=== PATIENT | male | born 1960 | race Hispanic/Latino ===

== ENCOUNTER 2020-01-30 19:18 | Emergency (ER) | payer BC ==
--- NOTE | 2020-01-30 20:55 | RAD REPORT ---
EXAM DESCRIPTION: RAD - Chest Single View - 01/30/2020 8:39 pm CLINICAL HISTORY: COUGH Chest pain. COMPARISON: No comparisons FINDINGS: Portable technique limits examination quality. The lungs are grossly clear. The heart is normal in size. No displaced fractures. IMPRESSION: No acute intrathoracic process suspected.
[2020-01-30] MEDS ORDERED: NA CHLORIDE 0.9% 500 ML ONE (21:06)
[2020-01-30 21:24] LABS: Absolute Lymphocytes (CBC) 1.7 K/uL (0.7-4.9); Basophils % 0.4 % (0-1.3); Hematocrit 41.5 % (39.6-49.0); Lymphocytes % 24.3 % (15.3-44.8); MPV 7.5 fL (7.6-11.3); RBC Red Blood Cell Count 4.42 M/uL (4.33-5.43)
[2020-01-30] MEDS ORDERED: ASPIRIN 81 MG CHEWABLE TABLET ONE (21:33)
[2020-01-30 21:54] LABS: ALT/SGPT 57 U/L (12-78); AST/SGOT 40 U/L (15-37); Albumin 3.1 g/dL (3.4-5.0); Alkaline Phosphatase 74 U/L (45-117); BUN Blood Urea Nitrogen 15 mg/dL (7-18); Bicarbonate 28 mmol/L (21-32); Bilirubin Direct 0.1 mg/dL (0-0.2); Bilirubin Total 0.3 mg/dL (0.2-1.0); Glucose Level 114 mg/dL (74-106); Magnesium 1.9 mg/dL (1.8-2.4); NT PRO-BNP 36 pg/mL (<125); Potassium 3.9 mmol/L (3.5-5.1); Protein, Total 7.2 g/dL (6.4-8.2); Sodium Level 136 mmol/L (136-145); Troponin (Emerg Dept Use Only) < 0.02 ng/mL (0.0-0.045)
--- NOTE | 2020-01-30 22:24 | EDPHYS ---
Physician Documentation [facility] Name: Rubén Kelly Age: 59 yrs Sex: Male : 1960 Arrival Date: 01/30/2020 Time: 19:37 Bed 23 Private MD: ED Physician Eliezer Tillman HPI: 01/29 20:11 This 59 yrs old Male presents to ER via Unassigned with complaints of john Breathing Difficulty, Chest Pain. 20:11 The patient has shortness of breath at rest, with light activity. Onset: The john symptoms/episode began/occurred 1 day(s) ago. Duration: The symptoms are continuous, and are unchanged since they started. The patient's shortness of breath is aggravated by nothing, is alleviated by nothing. Associated signs and symptoms: Pertinent positives: non-productive cough, mild valdez. Severity of symptoms: At their worst the symptoms were mild in the emergency department the symptoms are unchanged. The patient has not experienced similar symptoms in the past. Historical: - Allergies: 19:58 No Known Allergies; bb - Home Meds: 19:58 tramadol 50 mg Oral tab three times a day [Active]; gabapentin 600 mg oral tab 1 tab bb four times a day [Active]; lisinopril-hydrochlorothiazide 20-12.5 mg oral tab 1 tab once daily [Active]; - PMHx: 19:58 Hypertension; chronic back pain; bb - Immunization history:: Adult Immunizations up to date. - Social history:: Smoking status: Patient denies any tobacco usage or history of. ROS: 20:12 Constitutional: Negative for fever, chills, and weight loss, Eyes: Negative for injury, john pain, redness, and discharge, ENT: Negative for injury, pain, and discharge, Neck: Negative for injury, pain, and swelling, Cardiovascular: Negative for chest pain, palpitations, and edema, Abdomen/GI: Negative for abdominal pain, nausea, vomiting, diarrhea, and constipation, Back: Negative for injury and pain, : Negative for injury, bleeding, discharge, and swelling, MS/Extremity: Negative for injury and deformity, Skin: Negative for injury, rash, and discoloration, Neuro: Negative for headache, weakness, numbness, tingling, and seizure, Psych: Negative for depression, anxiety, suicide ideation, homicidal ideation, and hallucinations, Allergy/Immunology: Negative for hives, rash, and allergies, Endocrine: Negative for neck swelling, polydipsia, polyuria, polyphagia, and marked weight changes. 20:12 Respiratory: Positive for cough, shortness of breath, on exertion. 20:12 Neuro: Positive for headache. Exam: 20:12 Constitutional: This is a well developed, well nourished patient who is awake, alert, john and in no acute distress. Head/Face: Normocephalic, atraumatic. Eyes: Pupils equal round and reactive to light, extra-ocular motions intact. Lids and lashes normal. Conjunctiva and sclera are non-icteric and not injected. Cornea within normal limits. Periorbital areas with no swelling, redness, or edema. ENT: Nares patent. No nasal discharge, no septal abnormalities noted. Tympanic membranes are normal and external auditory canals are clear. Oropharynx with no redness, swelling, or masses, exudates, or evidence of obstruction, uvula midline. Mucous membranes moist. Neck: Trachea midline, no thyromegaly or masses palpated, and no cervical lymphadenopathy. Supple, full range of motion without nuchal rigidity, or vertebral point tenderness. No Meningismus. Chest/axilla: Normal chest wall appearance and motion. Nontender with no deformity. No lesions are appreciated. Cardiovascular: Regular rate and rhythm with a normal S1 and S2. No gallops, murmurs, or rubs. Normal PMI, no JVD. No pulse deficits. Respiratory: Lungs have equal breath sounds bilaterally, clear to auscultation and percussion. No rales, rhonchi or wheezes noted. No increased work of breathing, no retractions or nasal flaring. Abdomen/GI: Soft, non-tender, with normal bowel sounds. No distension or tympany. No guarding or rebound. No evidence of tenderness throughout. Back: No spinal tenderness. No costovertebral tenderness. Full range of motion. Male : Normal genitalia with no discharge or lesions. Skin: Warm, dry with normal turgor. Normal color with no rashes, no lesions, and no evidence of cellulitis. MS/ Extremity: Pulses equal, no cyanosis. Neurovascular intact. Full, normal range of motion. Neuro: Awake and alert, GCS 15, oriented to person, place, time, and situation. Cranial nerves II-XII grossly intact. Motor strength 5/5 in all extremities. Sensory grossly intact. Cerebellar exam normal. Normal gait. Psych: Awake, alert, with orientation to person, place and time. Behavior, mood, and affect are within normal limits. 20:12 Musculoskeletal/extremity: DVT Exam: No signs of deep vein thrombosis. no pain, no swelling, no tenderness, negative Homans' sign noted on exam, no appreciated bluish discoloration, no erythema, no increased warmth. 20:16 Neck: ROM/movement: is normal, no acute changes, Meningeal signs: are not present, john Kernig's sign is negative, Brudzinski's sign is negative. 21:24 ECG was reviewed by the Attending Physician. [facility] Vital Signs: 20:12 BP 121 / 67; Pulse 103; Resp 18; Temp 100.(O); Pulse Ox 95% ; Weight 136.08 kg; Height ls4 5 ft. 4 in. (162.56 cm); Pain 3/10; 21:17 BP 110 / 64; Pulse 93; Resp 16; Pulse Ox 97% on R/A; Pain 3/10; ls4 08 00:10 BP 114 / 62; Pulse 88; Resp 16; Temp 100.0(O); Pulse Ox 97% on R/A; Pain 3/10; ls4 00:30 BP 116 / 64; Pulse 78; Resp 16; Pulse Ox 98% on R/A; Pain 0/10; ls4 01/29 20:12 Body Mass Index 51.49 (136.08 kg, 162.56 cm) ls4 Anne Coma Score: 01/29 20:14 Eye Response: spontaneous(4). Verbal Response: oriented(5). Motor Response: obeys [facility] commands(6). Total: 15. MDM: 19:51 Patient medically screened. john 20:14 Differential diagnosis: CHF exacerbation, hypertensive headache, migraine, tension john headache, Myocardial Infarction pulmonary edema, Pulmonary Embolism Sepsis Unstable Angina. Antibiotic administration: Not indicated. Differential Diagnosis sepsis. The patient's Wells Deep Vein Thrombosis Score was calculated as follows: Total Score: 0-2 Pts- Low Risk. The patient's pulmonary embolism risk score was calculated as follows: Total Score: 0-2 points. This patient was found to be at low risk for a pulmonary embolism by using the Well's assessment criteria. Immunization status: Influenza vaccine: Data reviewed: vital signs, nurses notes, lab test result(s), EKG, radiologic studies, plain films. Data interpreted: quality assurance monitor: rate is 103 beats/min, rhythm is normal sinus rhythm, Pulse oximetry: on room air is 95 %. Test interpretation: by ED physician or midlevel provider: ECG, plain radiologic studies. 21:44 ED course: valdez, low grade fever, tested for covid 1 day ago , has covid. ED course: john non toxic, neck supple , no meningismus. 22:23 Counseling: I had a detailed discussion with the patient and/or guardian regarding: the [facility] historical points, exam findings, and any diagnostic results supporting the discharge/admit diagnosis, lab results, radiology results, the need for outpatient follow up, for definitive care, an chief technologist. 01/29 20:11 Order name: Basic Metabolic Panel; Complete Time: 22:19 [facility] 01/29 20:11 Order name: CBC with Diff; Complete Time: 21:41 [facility] 01/29 20:11 Order name: LFT's; Complete Time: 22:19 [facility] 01/29 20:11 Order name: Magnesium; Complete Time: 22:19 [facility] 01/29 20:11 Order name: NT PRO-BNP; Complete Time: 22:19 [facility] 01/29 20:11 Order name: Troponin (emerg Dept Use Only); Complete Time: 22:19 [facility] 01/29 20:11 Order name: XRAY Chest (1 view); Complete Time: 21:06 [facility] 01/29 20:14 Order name: D-Dimer; Complete Time: 21:41 [facility] 01/29 21:42 Order name: Blood Culture Adult (2) [facility] 01/29 22:15 Order name: Urine Dipstick--Ancillary (enter results) tt[facility] 01/29 20:11 Order name: EKG; Complete Time: 20:11 [facility] 01/29 20:11 Order name: Cardiac monitoring; Complete Time: 21:17 [facility] 01/29 20:11 Order name: EKG - Nurse/Tech; Complete Time: 21:17 [facility] 01/29 20:11 Order name: IV Saline Lock; Complete Time: 21:17 [facility] 01/29 20:11 Order name: Labs collected and sent; Complete Time: 21:17 [facility] 01/29 20:11 Order name: O2 Per Protocol; Complete Time: 21:17 [facility] 01/29 20:11 Order name: O2 Sat Monitoring; Complete Time: 21:17 [facility] 01/29 20:11 Order name: Urine Dipstick-Ancillary (obtain specimen); Complete Time: 23:11 [facility] EC:24 Rate is 94 beats/min. Rhythm is regular. QRS [place] is Normal. TN interval is normal. QRS john interval is normal. QT interval is normal. No Q waves. T waves are Normal. No ST changes noted. Clinical impression: Normal ECG and No evidence of ischemia. Interpreted by me. Reviewed by me. Administered Medications: 21:16 Drug: NS 0.9% 500 ml Route: IV; Rate: bolus; Site: right antecubital; [facility] 01/30 21:46 Follow up: IV Status: Completed infusion; IV Intake: 500ml [facility] 01/29 21:16 Drug: Aspirin 162 mg Route: PO; [facility] 01/30 21:36 Follow up: Response: No adverse reaction ls4 00:09 Drug: Rocephin 1 grams Route: IV; Rate: per protocol; Site: right antecubital; 4 00:10 Drug: Zithromax 500 mg Route: PO; ls4 00:30 Follow up: BP 116 / 64; Pulse 78 bpm; Resp 16 bpm; Pulse Ox 98% RA; Pain 0/10 Adult ls4 00:10 Drug: Tylenol 1000 mg Route: PO; ls4 00:30 Follow up: Response: No adverse reaction 4 Disposition: 01/30/20 22:24 Discharged to Home. Impression: Fever, unspecified - COVID 19 EXPOSED, Cough, Headache. - Condition is Stable. - Discharge Instructions: Fever, Adult, General Headache Without Cause, Cough, Adult, [id number], Aspirin and Your Heart, General Headache Without Cause, [id number], Cough, Adult, COVID-19. - Prescriptions for Zithromax Z- Alphonse 250 mg Oral Tablet - take 1 tablet by ORAL route as directed for 5 days Day 1 - take two (2) tablets one time. Day 2, 3, 4 , 5 take one (1) tablet once daily.; 6 tablet. Medrol (Alphonse) 4 mg Oral Tablets, Dose Pack - take 1 tablet by ORAL route as directed - follow package instructions; 1 packet. - Medication Reconciliation Form, Thank You Letter, Antibiotic Education, Prescription Opioid Use form. - Follow up: Private Physician; When: 2 - 3 days; Reason: Recheck today's complaints, Continuance of care, Re-evaluation by your physician. - Problem is new. - Symptoms have improved. Signatures: Dispatcher [employer] EDHI Eliezer Tillman MD MD cha Ballard, Brenda, RN RN Dorota Ribera RN RN ls4 Corrections: (The following items were deleted from the chart) 00:11 01/29 22:24 01/30/2020 22:24 Discharged to Home. Impression: Fever, unspecified - COVID ls4 19 EXPOSED; Cough; Headache. Condition is Stable. Discharge Instructions: Fever, Adult, General Headache Without Cause, Cough, Adult, [id number], Aspirin and Your Heart, General Headache Without Cause, [id number], Cough, Adult, COVID-19. Prescriptions for Zithromax Z-Alphonse 250 mg Oral Tablet - take 1 tablet by ORAL route as directed for 5 days Day 1 - take two (2) tablets one time. Day 2, 3, 4 , 5 take one (1) tablet once daily.; 6 tablet, Medrol (Alphonse) 4 mg Oral Tablets, Dose Pack - take 1 tablet by ORAL route as directed - follow package instructions; 1 packet. and Forms are Medication Reconciliation Form, Thank You Letter, Antibiotic Education, Prescription Opioid Use. Follow up: Private Physician; When: 2 - 3 days; Reason: Recheck today's complaints, Continuance of care, Re-evaluation by your physician. Problem is new. Symptoms have improved. john
--- NOTE | 2020-01-30 22:24 | ER ---
Nurse's Notes [facility] Name: Rubén Kelly Age: 59 yrs Sex: Male : 1960 Arrival Date: 01/30/2020 Time: 19:37 Bed 23 Private MD: Diagnosis: Fever, unspecified-COVID 19 EXPOSED;Cough;Headache Presentation: 01/29 20:12 Chief complaint: Patient states: I had a headache today and took tylenol. it is still ls4 there a little. I also got tested for COVID today. Coronavirus screen: Client presents with at least one sign or symptom that may indicate coronavirus-19. Standard/surgical mask placed on the client. Provider contacted for isolation considerations. Ebola Screen: No symptoms or risks identified at this time. Initial Sepsis Screen: Does the patient meet any 2 criteria? No. Patient's initial sepsis screen is negative. Does the patient have a suspected source of infection? No. Patient's initial sepsis screen is negative. Risk Assessment: Do you want to hurt yourself or someone else? Patient reports no desire to harm self or others. Onset of symptoms is unknown. 20:12 Method Of Arrival: Ambulatory ls4 20:12 Acuity: ELAB 3 ls4 Triage Assessment: 20:12 General: Appears in no apparent distress. comfortable, obese, Behavior is cooperative. ls4 Respiratory: Reports Pt denies sob or chest pain. states he had a headache Onset: The symptoms/episode began/occurred unknown , the patient has mild shortness of breath. Historical: - Allergies: 19:58 No Known Allergies; bb - Home Meds: 19:58 tramadol 50 mg Oral tab three times a day [Active]; gabapentin 600 mg oral tab 1 tab bb four times a day [Active]; lisinopril-hydrochlorothiazide 20-12.5 mg oral tab 1 tab once daily [Active]; - PMHx: 19:58 Hypertension; chronic back pain; bb - Immunization history:: Adult Immunizations up to date. - Social history:: Smoking status: Patient denies any tobacco usage or history of. Screenin:15 Abuse screen: Denies threats or abuse. Denies injuries from another. Nutritional ls4 screening: No deficits noted. Tuberculosis screening: No symptoms or risk factors identified. Fall Risk None identified. Assessment: 20:16 Respiratory: Airway is patent Respiratory effort is even, unlabored, Breath sounds are ls4 clear bilaterally. 21:26 Pain: Complains of pain in forehead Pain currently is 3 out of 10 on a pain scale. ls4 Cardiovascular: Rhythm is sinus rhythm. Vital Signs: 20:12 BP 121 / 67; Pulse 103; Resp 18; Temp 100.(O); Pulse Ox 95% ; Weight 136.08 kg; Height ls4 5 ft. 4 in. (162.56 cm); Pain 3/10; 21:17 BP 110 / 64; Pulse 93; Resp 16; Pulse Ox 97% on R/A; Pain 3/10; ls4 01/30 00:10 BP 114 / 62; Pulse 88; Resp 16; Temp 100.0(O); Pulse Ox 97% on R/A; Pain 3/10; ls4 00:30 BP 116 / 64; Pulse 78; Resp 16; Pulse Ox 98% on R/A; Pain 0/10; ls4 01/29 20:12 Body Mass Index 51.49 (136.08 kg, 162.56 cm) ls4 [place] Coma Score: 01/29 20:14 Eye Response: spontaneous(4). Verbal Response: oriented(5). Motor Response: obeys john commands(6). Total: 15. ED Course: 19:37 Patient arrived in ED. cf2 19:47 Dorota Kwan, RN is Primary Nurse. ls4 19:51 Eliezer Tillman MD is Attending Physician. john 20:12 Arm band placed on. ls4 20:12 Patient has correct armband on for positive identification. Placed in gown. Bed in low ls4 position. Call light in reach. Side rails up X 1. surveillance system monitor on. Pulse ox on. NIBP on. 20:12 Verbal reassurance given. ls4 20:14 Triage completed. ls4 20:37 No provider procedures requiring assistance completed. Inserted saline lock: 20 gauge ls4 in right antecubital area, using aseptic technique. Blood collected. 20:39 XRAY Chest (1 view) In Process Unspecified. EDMS Administered Medications: 21:16 Drug: NS 0.9% 500 ml Route: IV; Rate: bolus; Site: right antecubital; ls4 01/30 21:46 Follow up: IV Status: Completed infusion; IV Intake: 500ml ls4 01/29 21:16 Drug: Aspirin 162 mg Route: PO; ls4 01/30 21:36 Follow up: Response: No adverse reaction ls4 00:09 Drug: Rocephin 1 grams Route: IV; Rate: per protocol; Site: right antecubital; ls4 00:10 Drug: Zithromax 500 mg Route: PO; ls4 00:30 Follow up: BP 116 / 64; Pulse 78 bpm; Resp 16 bpm; Pulse Ox 98% RA; Pain 0/10 Adult ls4 00:10 Drug: Tylenol 1000 mg Route: PO; ls4 00:30 Follow up: Response: No adverse reaction ls4 Intake: 21:46 IV: 500ml; Total: 500ml. ls4 Outcome: 01/29 22:24 Discharge ordered by MD. lopez 01/30 00:11 Patient left the ED. ls4 Signatures: Dispatcher [employer] EDEliezer Dill MD MD cha Ballard, Brenda, RN RN bb Stewart, Lisa, RN RN rust Joni Gonzalez 2
[2020-01-30 22:46] LABS: Urine Blood NEGATIVE (NEG); Urine Glucose NEGATIVE (NEG); Urine Protein NEGATIVE (NEG)
[2020-01-30] MEDS ORDERED: AZITHROMYCIN 250 MG TAB ONE ×2 (22:57→23:47)
[2020-01-30] MEDS ORDERED: CEFTRIAXONE/SWI 1gm 1 GM/10 ML SYR ONE ×2 (22:57→23:47)
[2020-01-30] MEDS ORDERED: ACETAMINOPHEN 500 MG TAB ONE (23:47)
--- NOTE | 2020-01-31 05:46 | EKG ---
Test Date: 2020-01-30 Test Time: 21:03:30 Fire Safety Inspector: TAYLA MEASUREMENT RESULTS: Intervals: Rate: 94 CT: 146 QRSD: 90 QT: 352 QTc: 440 [place]: P: 41 CT: 146 QRS: 29 T: 30 INTERPRETIVE STATEMENTS: Normal sinus rhythm Normal ECG No previous ECG available for comparison Electronically Signed On 01-31-20 05:45:07 CDT by Isaac Fox
[2020-02-03 18:37] VITALS: BP 114/62; TEMP 100; O2SAT 97
== END 2020-01-31 00:11 | disposition home or self-care (01) ==
LOC: ER 19:18
DX: R05 Cough (principal); Z20.828 Contact with and (suspected) exposure to other viral communicable diseases; R50.9 Fever, unspecified; I10 Essential (primary) hypertension
CPT/HCPCS: 96361; 93005; 87040 ×2; 85025; 80048; 36415; 83735; 85379; 80076; 81003; 84484; 83880; 71045; 96374; 99284; J0696 ×2; J7040

== ENCOUNTER 2020-02-04 03:59 | Observation (INO) | payer BC ==
[2020-02-04 04:37] LABS: Absolute Lymphocytes (CBC) 1.1 K/uL (0.7-4.9); Basophils % 0.3 % (0-1.3); Hematocrit 40.2 % (39.6-49.0); Lymphocytes % 13.5 % (15.3-44.8); MPV 7.9 fL (7.6-11.3); RBC Red Blood Cell Count 4.35 M/uL (4.33-5.43)
[2020-02-04] MEDS ORDERED: dexAMETHasone 10 MG/ML VIAL ONE (04:39)
[2020-02-04] MEDS ORDERED: FAMOTIDINE 20 MG/2 ML VIAL IV ONE (04:39)
[2020-02-04] MEDS ORDERED: ASPIRIN 81 MG CHEWABLE TABLET ONE (04:39)
[2020-02-04 05:03] LABS: ALT/SGPT 102 U/L (12-78); AST/SGOT 72 U/L (15-37); Albumin 2.8 g/dL (3.4-5.0); Alkaline Phosphatase 67 U/L (45-117); BUN Blood Urea Nitrogen 10 mg/dL (7-18); Bicarbonate 25 mmol/L (21-32); Bilirubin Direct 0.1 mg/dL (0-0.2); Bilirubin Total 0.3 mg/dL (0.2-1.0); Glucose Level 133 mg/dL (74-106); Magnesium 1.8 mg/dL (1.8-2.4); NT PRO-BNP 40 pg/mL (<125); Potassium 4.3 mmol/L (3.5-5.1); Protein, Total 7.2 g/dL (6.4-8.2); Sodium Level 131 mmol/L (136-145); Troponin (Emerg Dept Use Only) < 0.02 ng/mL (0.0-0.045)
[2020-02-04] MEDS ORDERED: ENOXAPARIN 100 MG/ML SYR SQ ONE (05:25)
--- NOTE | 2020-02-04 05:33 | EDPHYS ---
Physician Documentation [facility] Name: Rubén Kelly Age: 59 yrs Sex: Male : 1960 Arrival Date: 02/04/2020 Time: 04:01 Bed 5 Private MD: ED Physician Eliezer Tillman HPI: 02/03 04:19 This 59 yrs old Male presents to ER via Wheelchair with complaints of Chest john Pain, Shortness Of Breath. 04:19 This 59 yrs old Male presents to ER via Wheelchair with complaints of Chest john Pain, Shortness Of Breath. 04:19 The patient or guardian reports chest pain that is located primarily in the anterior john chest wall, left. Onset: just prior to arrival, this morning. The pain does not radiate. Associated signs and symptoms: Pertinent positives: cough, diaphoresis, lightheadedness, shortness of breath. The chest pain is described as a heaviness, sharp. Duration: The patient or guardian reports a single episode, that is still ongoing. Modifying factors: The symptoms are alleviated by remaining still, the symptoms are aggravated by breathing, cough, deep breath. Severity of pain: At its worst the pain was moderate in the emergency department the pain has improved mildly. The patient has not experienced similar symptoms in the past, diagnosed Covid 19 positive. Historical: - Allergies: 04:11 No Known Allergies; sg - Home Meds: 05:15 lisinopril-hydrochlorothiazide 20-12.5 mg Oral tab 1 tab once daily for Hypertension mt2 [Active]; tramadol 50 mg Oral tab three times a day for Pain [Active]; gabapentin 600 mg Oral tab 1 tab four times a day for Neuropathic Pain [Active]; - PMHx: 04:11 chronic back pain; Hypertension; sg - Immunization history:: Adult Immunizations not up to date. - Social history:: Smoking status: Patient denies any tobacco usage or history of. - Family history:: not pertinent. ROS: 04:23 Constitutional: Negative for fever, chills, and weight loss, Eyes: Negative for injury, john pain, redness, and discharge, ENT: Negative for injury, pain, and discharge, Neck: Negative for injury, pain, and swelling, Abdomen/GI: Negative for abdominal pain, nausea, vomiting, diarrhea, and constipation, Back: Negative for injury and pain, : Negative for injury, bleeding, discharge, and swelling, MS/Extremity: Negative for injury and deformity, Skin: Negative for injury, rash, and discoloration, Neuro: Negative for headache, weakness, numbness, tingling, and seizure, Psych: Negative for depression, anxiety, suicide ideation, homicidal ideation, and hallucinations, Allergy/Immunology: Negative for hives, rash, and allergies, Endocrine: Negative for neck swelling, polydipsia, polyuria, polyphagia, and marked weight changes, Hematologic/Lymphatic: Negative for swollen nodes, abnormal bleeding, and unusual bruising. 04:23 Cardiovascular: Positive for chest pain, with cough, with movement, of the left clavicle and anterior aspect of left upper chest. 04:23 Respiratory: Positive for cough, shortness of breath, at rest. Exam: 04:23 Constitutional: This is a well developed, well nourished patient who is awake, alert, john and in no acute distress. Head/Face: Normocephalic, atraumatic. Eyes: Pupils equal round and reactive to light, extra-ocular motions intact. Lids and lashes normal. Conjunctiva and sclera are non-icteric and not injected. Cornea within normal limits. Periorbital areas with no swelling, redness, or edema. ENT: Nares patent. No nasal discharge, no septal abnormalities noted. Tympanic membranes are normal and external auditory canals are clear. Oropharynx with no redness, swelling, or masses, exudates, or evidence of obstruction, uvula midline. Mucous membranes moist. Neck: Trachea midline, no thyromegaly or masses palpated, and no cervical lymphadenopathy. Supple, full range of motion without nuchal rigidity, or vertebral point tenderness. No Meningismus. Chest/axilla: Normal chest wall appearance and motion. Nontender with no deformity. No lesions are appreciated. Cardiovascular: Regular rate and rhythm with a normal S1 and S2. No gallops, murmurs, or rubs. Normal PMI, no JVD. No pulse deficits. Respiratory: Lungs have equal breath sounds bilaterally, clear to auscultation and percussion. No rales, rhonchi or wheezes noted. No increased work of breathing, no retractions or nasal flaring. Abdomen/GI: Soft, non-tender, with normal bowel sounds. No distension or tympany. No guarding or rebound. No evidence of tenderness throughout. Back: No spinal tenderness. No costovertebral tenderness. Full range of motion. Male : Normal genitalia with no discharge or lesions. Skin: Warm, dry with normal turgor. Normal color with no rashes, no lesions, and no evidence of cellulitis. MS/ Extremity: Pulses equal, no cyanosis. Neurovascular intact. Full, normal range of motion. Neuro: Awake and alert, GCS 15, oriented to person, place, time, and situation. Cranial nerves II-XII grossly intact. Motor strength 5/5 in all extremities. Sensory grossly intact. Cerebellar exam normal. Normal gait. Psych: Awake, alert, with orientation to person, place and time. Behavior, mood, and affect are within normal limits. 04:23 Musculoskeletal/extremity: DVT Exam: No signs of deep vein thrombosis. no pain, no swelling, no tenderness, negative Homans' sign noted on exam, no appreciated bluish discoloration, no erythema, no increased warmth. 05:20 ECG was reviewed by the Attending Physician. [facility] Vital Signs: 04:22 BP 151 / 73; Pulse 90; Resp 17; Temp 98.8; Pulse Ox 94% on R/A; ea 04:25 Weight 136.08 kg; Height 5 ft. 7 in. (170.18 cm); ea 05:18 BP 122 / 65; Pulse 85; Resp 18; Pulse Ox 93% ; ea 06:38 BP 122 / 61; Pulse 80; Resp 19; Pulse Ox 95% ; Pain 0/10; mt2 04:25 Body Mass Index 46.99 (136.08 kg, 170.18 cm) MDM: 04:08 Patient medically screened. [facility] 04:24 Data reviewed: vital signs, nurses notes, lab test result(s), EKG, radiologic studies, [facility] CT scan, plain films. 07:18 Differential diagnosis: abnormal EKG, anxiety, chest wall pain, congestive heart john failure esophagitis, hiatal hernia, pancreatitis, pericarditis, pleurisy, pneumonia, pulmonary embolus, stable angina, unstable angina. HEART Score: History: Slightly Suspicious (0), ECG: Normal (0), Age: > 45 and < 65 years (1), Risk Factors: 1 or 2 risk factors (1), Troponin: < or = 1 x Normal Limit (0). The patient was given aspirin in the Emergency Department. The patient's deep vein thrombosis risk score was calculated as follows: Total Score: 0. This patient was found to be at low risk for a deep vein thrombosis by using the Well's assessment criteria. The patient's pulmonary embolism risk score was calculated as follows: Total Score: 0-2 points. This patient was found to be at low risk for a pulmonary embolism by using the Well's assessment criteria. AZALIA Risk Score: 1 - Recent [<24hrs] Severe Angina, TOTAL SCORE = 1. Data interpreted: lunchroom monitor: rate is 80 beats/min, rhythm is regular, Pulse oximetry: on room air is 89 %. Test interpretation: by ED physician or midlevel provider: ECG, plain radiologic studies. Counseling: I had a detailed discussion with the patient and/or guardian regarding: the historical points, exam findings, and any diagnostic results supporting the discharge/admit diagnosis, lab results, radiology results, the need for further work-up and treatment in the hospital. ED course: all labs explained, ans plan discussed with Prasad Head, will obs for bilateral pneumonia, Covid 19 positve, hypoxia with chest pain, pt much improved. 02/03 04:19 Order name: Basic Metabolic Panel; Complete Time: 05:28 [facility] 02/03 04:19 Order name: CBC with Diff; Complete Time: 05:03 [facility] 02/03 04:19 Order name: LFT's; Complete Time: 05:28 [facility] 02/03 04:19 Order name: Magnesium; Complete Time: 05:28 [facility] 02/03 04:19 Order name: NT PRO-BNP; Complete Time: 05:28 [facility] 02/03 04:19 Order name: Troponin (emerg Dept Use Only); Complete Time: 05:28 [facility] 02/03 04:19 Order name: XRAY Chest (1 view) [facility] 02/03 04:19 Order name: Blood Culture Adult (2) [facility] 02/03 04:19 Order name: Lactate; Complete Time: 05:03 [facility] 02/03 04:19 Order name: Procalcitonin; Complete Time: 05:38 [facility] 02/03 04:19 Order name: CT Chest For PE Angio [facility] 02/03 04:57 Order name: CREATININE WHOLE BLOOD; Complete Time: 05:03 [facility] 02/03 04:19 Order name: EKG; Complete Time: 04:20 [facility] 02/03 04:19 Order name: Cardiac monitoring; Complete Time: 04:36 [facility] 02/03 04:19 Order name: EKG - Nurse/Tech; Complete Time: :36 [facility] 02/03 04:19 Order name: IV Saline Lock; Complete Time: 04:36 [facility] 02/03 04:19 Order name: Labs collected and sent; Complete Time: 04:36 [facility] 02/03 04:19 Order name: O2 Per Protocol; Complete Time: : [facility] 02/03 04:19 Order name: O2 Sat Monitoring; Complete Time: :36 [facility] EC:20 Rate is 92 beats/min. Rhythm is regular. QRS [place] is Normal. VA interval is normal. QRS john interval is normal. QT interval is normal. No Q waves. T waves are Normal. No ST changes noted. Clinical impression: Normal ECG and No evidence of ischemia. Interpreted by me. Reviewed by me. Administered Medications: 04:35 Drug: Pepcid 20 mg Route: IVP; Site: left antecubital; ea 05:03 Follow up: Response: No adverse reaction mt2 04:35 Drug: Decadron - Dexamethasone 6 mg Route: IVP; Site: left antecubital; ea 05:03 Follow up: Response: No adverse reaction mt2 04:36 Drug: Aspirin Chewable Tablet 324 mg Route: PO; ea 05:03 Follow up: Response: No adverse reaction mt2 05:16 Drug: Lovenox 1 mg/kg Route: Sub-Q; Site: right lower abdomen; ea 05:37 Follow up: Response: No adverse reaction mt2 05:37 Drug: Rocephin 1 grams Route: IV; Rate: per protocol; Site: left antecubital; mt2 05:41 Follow up: Response: No adverse reaction; IV Status: Completed infusion ea 05:37 Drug: Zithromax 500 mg Route: IVPB; Infused Over: 1 hrs; Site: left antecubital; mt2 06:39 Follow up: Response: No adverse reaction; IV Status: Completed infusion mt2 Disposition: 02/04/20 05:32 Hospitalization ordered by James Campbell for Observation. Preliminary diagnosis are Other chest pain, Viral pneumonia, unspecified - multifocal, Covid 19 positive, Hypoxemia, Obesity, unspecified. - Bed requested for Intensive Care Unit. - Status is Observation. [email or web address] - Condition is Fair. - Problem is new. - Symptoms have improved. Signatures: Dispatcher [employer] EDMS Hiwot Lemons RN FARZANEH Julius Stokes RN Eliezer Paz MD MD cha Attema, Lee, SUPERINTENDENT SALES-C SUPERINTENDENT SALES-Cla1 Fannie Salinas, RN RN Kinsey Sorto, RN RN mt2 Abbey Gil, RN RN [email or web address] Corrections: (The following items were deleted from the chart) 05:51 05:32 Hospitalization Ordered by James Campbell DO for Observation. Preliminary mw diagnosis is Other chest pain; Viral pneumonia, unspecified - multifocal, Covid 19 positive; Hypoxemia; Obesity, unspecified. Bed requested for Telemetry/MedSurg (observation). Status is Observation. Condition is Fair. Problem is new. Symptoms have improved. [facility] 07:55 05:51 02/04/2020 05:32 Hospitalization Ordered by James Campbell DO for Observation. [email or web address] Preliminary diagnosis is Other chest pain; Viral pneumonia, unspecified - multifocal, Covid 19 positive; Hypoxemia; Obesity, unspecified. Bed requested for Intensive Care Unit. Status is Observation. Condition is Fair. Problem is new. Symptoms have improved. mw
--- NOTE | 2020-02-04 05:33 | ER ---
Nurse's Notes [facility] Name: Rubén Kelly Age: 59 yrs Sex: Male : 1960 Arrival Date: 02/04/2020 Time: 04:01 Bed 5 Private MD: Diagnosis: Other chest pain;Viral pneumonia, unspecified-multifocal, Covid 19 positive;Hypoxemia;Obesity, unspecified Presentation: 02/03 04:10 Chief complaint: Patient states: Left sided chest pain, non radiating, shortness of sg breath at rest, worsening with activity, denies N/V/D/Fever/Chills at this time. Coronavirus screen: Client denies travel out of the [place] in the last 14 days. shortness of breath. Ebola Screen: Patient negative for fever greater than or equal to 101.5 degrees Fahrenheit, and additional compatible Ebola Virus Disease symptoms Patient denies exposure to infectious person. Patient denies travel to an Ebola-affected area in the 21 days before illness onset. No symptoms or risks identified at this time. Initial Sepsis Screen: Does the patient meet any 2 criteria? No. Patient's initial sepsis screen is negative. Does the patient have a suspected source of infection? No. Patient's initial sepsis screen is negative. Risk Assessment: Do you want to hurt yourself or someone else? Patient reports no desire to harm self or others. Onset of symptoms was February 04, 2020. Care prior to arrival: None. Transition of care: patient was not received from another setting of care. 04:10 Method Of Arrival: Wheelchair sg 04:10 Acuity: ELBA 3 sg Historical: - Allergies: 04:11 No Known Allergies; sg - Home Meds: 05:15 lisinopril-hydrochlorothiazide 20-12.5 mg Oral tab 1 tab once daily for Hypertension mt2 [Active]; tramadol 50 mg Oral tab three times a day for Pain [Active]; gabapentin 600 mg Oral tab 1 tab four times a day for Neuropathic Pain [Active]; - PMHx: 04:11 chronic back pain; Hypertension; sg - Immunization history:: Adult Immunizations not up to date. - Social history:: Smoking status: Patient denies any tobacco usage or history of. - Family history:: not pertinent. Screenin:22 Abuse screen: Denies threats or abuse. Nutritional screening: No deficits noted. ea Tuberculosis screening: No symptoms or risk factors identified. Fall Risk None identified. Assessment: 04:34 General: Appears uncomfortable, Behavior is appropriate for age. Pain: Complains of ea pain in chest Pain does not radiate. Pain began 1 day ago. Neuro: Level of Consciousness is awake, alert, obeys commands, Oriented to person, place, time, situation. Cardiovascular: Patient's skin is warm and dry. Respiratory: Airway is patent Respiratory effort is labored, Respiratory pattern is tachypnea. Derm: Skin is diaphoretic, Skin temperature is warm. 05:04 Reassessment: Pt taken to CT. ea 05:13 GI: No deficits noted. : No deficits noted. EENT: No deficits noted. mt2 05:17 Reassessment: Hospitalist at bedside updating plan of care. ea 05:39 Reassessment: Patient and/or family updated on plan of care and expected duration. Pain mt2 level reassessed. Patient is alert, oriented x 3, equal unlabored respirations, skin warm/dry/pink. General: Appears comfortable, Behavior is cooperative. Pain: Denies pain. 05:49 Reassessment: PER PT WAS TESTED FOR COVID ON SUNDAY AT THE [facility]. WAS mt2 INFORMED BY PHONE THAT THE RESULTS WERE POSITIVE. SPOUSE CONFIRM. 06:38 Reassessment: Patient and/or family updated on plan of care and expected duration. Pain mt2 level reassessed. Patient is alert, oriented x 3, equal unlabored respirations, skin warm/dry/pink. General: Appears comfortable, Behavior is cooperative. Pain: Denies pain. Vital Signs: 04:22 BP 151 / 73; Pulse 90; Resp 17; Temp 98.8; Pulse Ox 94% on R/A; ea 04:25 Weight 136.08 kg; Height 5 ft. 7 in. (170.18 cm); ea 05:18 BP 122 / 65; Pulse 85; Resp 18; Pulse Ox 93% ; ea 06:38 BP 122 / 61; Pulse 80; Resp 19; Pulse Ox 95% ; Pain 0/10; mt2 04:25 Body Mass Index 46.99 (136.08 kg, 170.18 cm) ea ED Course: 04:01 Patient arrived in ED. cl3 04:04 Eliezer Tillman MD is Attending Physician. john 04:10 Arm band placed on. sg 04:11 Triage completed. sg 04:22 Patient has correct armband on for positive identification. Bed in low position. Call ea light in reach. Side rails up X 1. personnel monitor on. Pulse ox on. NIBP on. 04:22 Patient maintains SpO2 saturation greater than 95% on room air. ea 04:30 Inserted saline lock: 20 gauge in left antecubital area, using aseptic technique. per ea Kinsey MOY. 04:43 Kinsey Marino RN is Primary Nurse. mt2 05:02 XRAY Chest (1 view) In Process Unspecified. EDMS 05:25 CT Chest For PE Angio In Process Unspecified. EDMS 05:29 James Campbell DO is Hospitalizing Provider. john 05:40 No provider procedures requiring assistance completed. Patient admitted, IV remains in ea place. Administered Medications: 04:35 Drug: Pepcid 20 mg Route: IVP; Site: left antecubital; ea 05:03 Follow up: Response: No adverse reaction mt2 04:35 Drug: Decadron - Dexamethasone 6 mg Route: IVP; Site: left antecubital; ea 05:03 Follow up: Response: No adverse reaction mt2 04:36 Drug: Aspirin Chewable Tablet 324 mg Route: PO; ea 05:03 Follow up: Response: No adverse reaction mt2 05:16 Drug: Lovenox 1 mg/kg Route: Sub-Q; Site: right lower abdomen; ea 05:37 Follow up: Response: No adverse reaction mt2 05:37 Drug: Rocephin 1 grams Route: IV; Rate: per protocol; Site: left antecubital; mt2 05:41 Follow up: Response: No adverse reaction; IV Status: Completed infusion ea 05:37 Drug: Zithromax 500 mg Route: IVPB; Infused Over: 1 hrs; Site: left antecubital; mt2 06:39 Follow up: Response: No adverse reaction; IV Status: Completed infusion mt2 Outcome: 05:32 Decision to Hospitalize by Provider. john 05:40 Instructed on the need for admit, Demonstrated understanding of instructions. ea 05:48 Condition: stable mt2 07:14 Admitted to ICU accompanied by nurse, via stretcher, room 8, with chart, Report called sv to Addis MOY 07:30 Patient left the ED. sv Signatures: Dispatcher [employer] EDAnnie Palomino, RN RN Julius Dennison RN Eliezer Paz MD MD cha Antunez, Elena RN Rainer Terry ea 3 Kinsey Marino, RN RN mt2 Abbey Gil RN RN [email or web address] Corrections: (The following items were deleted from the chart) 08:04 07:55 Patient left the ED. jrElvia sv
[2020-02-04] MEDS ORDERED: CEFTRIAXONE/SWI 1gm 1 GM/10 ML SYR ONE (05:43)
[2020-02-04] MEDS ORDERED: AZITHROMYCIN 500 MG INJ IVPB ONE (05:43)
[2020-02-04] MEDS ORDERED: NA CHLORIDE 0.9% 250 ML ONE (05:43)
[2020-02-04] MEDS: METHYLPREDNISOLONE 125 MG INJ IV SCH ×2 (07:00→13:14)
--- NOTE | 2020-02-04 07:21 | RAD REPORT ---
EXAM DESCRIPTION: RAD - Chest Single View - 02/04/2020 5:02 am CLINICAL HISTORY: Cough;Chest pain;Dyspnea COMPARISON: January 29 TECHNIQUE: AP portable chest image was obtained 02/04/2020 5:02 am . FINDINGS: Patchy alveolar opacities are scattered in the lung wilson with no one area showing a more dense consolidation. Lung volumes are low which accentuates the lung parenchymal pattern. Findings r epresent a change from January 29. Mild cardiomegaly is present and there is mild vascular engorgement . No pneumothorax or large pleural effusion. No acute bony abnormality seen. No acute aortic findings suspected. IMPRESSION: Heart, vasculature and lung markings are all prominent and patient may have a mild under lying failure or volume overload. Additional mostly peripheral airspace opacities are present. This could be part of a failure or volum e overload process. However, bilateral pneumonia, including COVID-19 pneumonia, should be considered.
[2020-02-04 07:54] VITALS: BMI 48.5
[2020-02-04] MEDS ORDERED: ENOXAPARIN 40 MG/0.4 ML SQ SCH (09:13)
[2020-02-04] MEDS ORDERED: VITAMIN D 1000 UNIT TAB PO SCH (09:13)
[2020-02-04] MEDS ORDERED: ACETAMINOPHEN 500 MG TAB PO PRN (09:13)
[2020-02-04] MEDS ORDERED: ASPIRIN EC 81 MG TAB PO SCH (09:13)
[2020-02-04] MEDS ORDERED: THIAMINE HCL 100 MG TABLET PO SCH (09:13)
[2020-02-04] MEDS ORDERED: ASCORBIC ACID 500 MG TABLET PO SCH (09:13)
[2020-02-04] MEDS ORDERED: hydroCHLOROthiazide 25 MG TAB PO SCH (09:13)
[2020-02-04] MEDS ORDERED: ONDANSETRON 4 MG/2 ML VIAL IV PRN (09:13)
--- NOTE | 2020-02-04 09:14 | P.HP ---
Certification for Inpatient Patient admitted to: Observation With expected LOS: <2 Midnights Patient will require the following post-hospital care: None Practitioner: I am a practitioner with admitting privileges, knowledge of patient current condition, hospital course, and medical plan of care. Services: Services provided to patient in accordance with Admission requirements found in Title 42 Section 412.3 of the Code of Federal Regulations Patient History Date of Service: 02/04/20 Primary Care Provider: Dr. Albrecht Reason for admission: chest pain, SOB History of Present Illness: 59-year-old male with history of hypertension presented to the emergency room with chest pain and shortness of breath. Patient was recently diagnosis with COVID. He was treated as an outpatient. Patient had been taking medication but still had some shortness of breath especially with exertion. Chest pain was noted. He denied any fever, chills. Cough noted. He reports that he got infection from his . He came to the ER for further evaluation. In the ER patient was evaluated. Patient found to have chest pain and shortness of breath with exertion. Room-air saturations were normal on room air but slightly desatted with exertion. CT scan shows COVID pneumonia. No pulmonary embolism noted. CBC, BMP unremarkable. CRP pending at this time. Patient given IV steroid. Patient admitted for further evaluation and observation. When I saw the patient ER, patient appeared stable. Patient with history of hypertension. Patient denies any history of cardiac disease, diabetes or sleep apnea. Allergies No Known Allergies Allergy (Unverified 02/04/20 07:39) Home medications list reviewed: Yes Home Medications: Gabapentin 600 mg PO QID 02/04/20 Lisinopril/Hydrochlorothiazide [Lisinopril-Hctz 20-12.5 mg Tab] 1 each PO DAILY 02/04/20 traMADol HCL [Ultram] 50 mg PO TID PRN 02/04/20 - Past Medical/Surgical History Has patient received pneumonia vaccine in the past: No Diabetic: Yes -: HTN -: Chronic Back Pain -: Cholecystectomy Psychosocial/ Personal History: Patient lives at home. - Family History Family History: Reviewed- Non-Contributory - Social History Smoking Status: Never smoker Alcohol use: No CD- Drugs: No Caffeine use: Yes Place of Residence: Home Review of Systems General: As per HPI Eyes: Unremarkable ENT: Nose Congestion, As per HPI Respiratory: Cough, Shortness of Breath, SOB with Excertion, As per HPI Cardiovascular: Chest Pain, As per HPI Gastrointestinal: Unremarkable Genitourinary: Unremarkable Musculoskeletal: Unremarkable Integumentary: Unremarkable Neurological: Unremarkable Lymphatics: Unremarkable Physical Examination - Vital Signs Temperature: 97.8 F Blood Pressure: 121/65 Pulse: 79 Respirations: 28 Pulse Ox (%): 97 - Physical Exam General: Alert, In no apparent distress, Oriented x3, Cooperative HEENT: Atraumatic, Normocephalic Neck: Supple Respiratory: Clear to auscultation bilaterally, Normal air movement, Other (Patient appears stable off room-air room-air saturations within normal range.) Cardiovascular: Normal pulses, Regular rate/rhythm Gastrointestinal: Normal bowel sounds, Soft and benign, Non-distended, No tenderness, No masses, No rebound, No guarding Musculoskeletal: No erythema, No tenderness, No warmth Integumentary: No tenderness/swelling, No erythema, No warmth, No cyanosis Neurological: Normal speech, Normal strength at 5/5 x4 extr, Normal tone, Normal affect - Studies Laboratory Data (last 24 hrs) 02/04/20 04:25: WBC 8.5 D, Hgb 13.7, Hct 40.2, Plt Count 268 02/04/20 04:25: Sodium 131 L, Potassium 4.3, BUN 10, Creatinine 0.85, Glucose 133 H, Magnesium 1.8, Total Bilirubin 0.3, AST 72 H, ALT 102 H, Alkaline Phosphatase 67 Assessment and Plan - Plan Impression: Chest pain, shortness of breast secondary to bilateral COVID pneumonia with hypoxia on exertion Hypertension Chronic back pain Possible underlying obstructive sleep apnea Obesity, BMI 48 Plan: Chest pain, shortness of breast secondary to bilateral COVID pneumonia with hypoxia on exertion: Patient will be admitted for further evaluation observation. Will check CRP. Continue IV steroids and supplementation. Will provide oxygen maintain sats above 90%. Will qualify patient to receive home oxygen. Will reassess this afternoon. If CRP not significantly elevated and patient doing significantly better, will consider discharge on home oxygen later today. Will discuss with social sciences chair to help in this process. Education on COVID provided. Will monitor lab closely. Will check tsh and A1c. Hypertension: Hold lisinopril. Continue hydrochlorothiazide. Chronic back pain: Obtain and restart home medication. Possible underlying sleep apnea: This can be further evaluated as an outpati ent. Obesity, BMI 48: Will address lifestyle modification education Discharge Plan: Home Plan to discharge in: 24 Hours - Advance Directives Does patient have a Living Will: No Does patient have a Durable POA for Healthcare: No - Code Status/Comfort Care Code Status Assessed: Yes (Patient full code) Time Spent Managing Pts Care (In Minutes): 55
--- NOTE | 2020-02-04 12:16 | RAD REPORT ---
EXAM DESCRIPTION: CT - Chest For Pe Angio - 02/04/2020 6:43 am CLINICAL HISTORY: Cough;Chest pain;Dyspnea;Fever COMPARISON: None. TECHNIQUE: CT CHEST ANGIOGRAPHY WITH IV CONTRAST on 02/04/2020 4:19 AM CDT. MIPS reconstructions were generated. This exam was performed according to our departmental dose-optimization program, which includes autom ated exposure control, adjustment of the mA and/or kV according to patient size and/or use of iterati ve reconstruction technique. MIP images were generated. FINDINGS: Thoracic aorta is normal in course and caliber without aneurysm or dissection. Pulmonary a rteries are suboptimally opacified. There are no large central filling defects. The heart is normal in size. There is no pericardial effusion. Intrathoracic lymph nodes are not enla rged. There is no pleural effusion, pleural thickening or pneumothorax. Central airways are patent. There a re moderate patchy groundglass opacities scattered throughout both lungs mostly peripherally. There are no acute abnormalities within the limited images of the upper abdomen. There are no acute osseous findings. No suspicious bony lesions. IMPRESSION: No aortic dissection or aneurysm. No pulmonary embolus. Moderate areas of bilateral pneumonia. Electronically signed by: Marquez Arthur MD 02/04/2020 5:35 AM CDT Due to temporary technical issues with the PACS/Fluency reporting system, reports are being signed by the in house radiologist without review as a courtesy to ensure prompt reporting. The interpreting r adiologist is fully responsible for the content of the report.
--- NOTE | 2020-02-04 12:23 | EKG ---
Test Date: 2020-02-04 Test Time: 04:17:37 Ethics Officer: THERESE MEASUREMENT RESULTS: Intervals: Rate: 92 [place]: 142 QRSD: 90 QT: 348 QTc: 430 [place]: P: 40 [place]: 142 QRS: 25 T: 53 INTERPRETIVE STATEMENTS: Normal sinus rhythm Normal ECG Compared to ECG 01/30/2020 21:03:30 No significant changes Electronically Signed On 02-04-20 12:22:36 CDT by Isaac Fox
[2020-02-04] MEDS ORDERED: TRAMADOL HCL 50 MG TAB PO PRN (15:46)
[2020-02-04 16:26] VITALS: BP 147/81; TEMP 98.2
[2020-02-04] MEDS ORDERED: HOME MED 1 EA UNK (Gabapentin [Gabapentin] 600 MG) PO SCH (17:00)
[2020-02-04] MEDS ORDERED: GABAPENTIN 300 MG CAP PO SCH (17:00)
--- NOTE | 2020-02-04 17:10 | P.DS ---
Admission Date: 02/04/20 Discharge Date: 02/04/20 Primary Care Provider: Dr. Albrecht Disposition: ROUTINE DISCHARGE Discharge Condition: GOOD Reason for Admission: chest pain, SOB Consultations: Pulmonary-Dr. Lutz Procedures: Medical Problem List: Chest pain, shortness of breast secondary to bilateral COVID pneumonia with hypoxia on exertion Hypertension Chronic back pain Possible underlying obstructive sleep apnea Obesity, BMI 48 Brief History of Present Illness: 59-year-old male with history of hypertension presented to the emergency room with chest pain and shortness of breath. Patient was recently diagnosis with COVID. He was treated as an outpatient. Patient had been taking medication but still had some shortness of breath especially with exertion. Chest pain was noted. He denied any fever, chills. Cough noted. He reports that he got infection from his . He came to the ER for further evaluation. In the ER patient was evaluated. Patient found to have chest pain and shortness of breath with exertion. Room-air saturations were normal on room air but slightly desatted with exertion. CT scan shows COVID pneumonia. No pulmonary embolism noted. CBC, BMP unremarkable. CRP pending at this time. Patient given IV steroid. Patient admitted for further evaluation and observation. When I saw the patient ER, patient appeared stable. Patient with history of hypertension. Patient denies any history of cardiac disease, diabetes or sleep apnea. Hospital Course: Patient presented with chest pain and shortness of breast secondary to COVID pneumonia. Hypoxia noted. Pulmonary was consulted. Patient received IV steroids and oxygen. He has done well with treatment. Patient will continue with Prednisone 20 mg one pill twice daily for 5 days then one pill every day for 5 days. Home oxygen will be arranged to maintain oxygen sats above 90%. Patient may need to limit activities for at least 1-2 weeks. Patient will also continue with Melatonin 3 mg every bedtime, Vitamin C 500 mg one pill twice daily, Thiamine 100 mg one pill daily. Recommend follow up with Pulmonary in one week to follow up this hospitalization. He will further adjust his medication and oxygen. Patient with HTN. At discharge, he will continue with his medication-Lisinopri lHCTZ daily. Recommend to maintain BP less than 150/80. Further adjustment can be done by PCP. Patient with chronic pain. He may continue with his medication-Tramadol and Neurontin. Further adjustment in medication can be done by PCP. Vital Signs/Physical Exam: Temp Pulse Resp BP Pulse Ox 98.2 F 72 15 147/81 H 93 02/04/20 16:00 02/04/20 16:00 02/04/20 16:00 02/04/20 16:00 02/04/20 16:00 General: Alert, In no apparent distress, Oriented x3 HEENT: Atraumatic Neck: Supple Respiratory: Other (Patient on 1 L per nasal cannula. No significant distress noted) Cardiovascular: Normal pulses, Regular rate/rhythm Gastrointestinal: Normal bowel sounds Neurological: Normal speech, Normal strength at 5/5 x4 extr, Normal tone, Normal affect Laboratory Data at Discharge: WBC 8.5 K/uL (4.3-10.9) D 02/04/20 04:25 Hgb 13.7 g/dL (13.6-17.9) 02/04/20 04:25 Hct 40.2 % (39.6-49.0) 02/04/20 04:25 Plt Count 268 K/uL (152-406) 02/04/20 04:25 Sodium 131 mmol/L (136-145) L 02/04/20 04:25 Potassium 4.3 mmol/L (3.5-5.1) 02/04/20 04:25 BUN 10 mg/dL (7-18) 02/04/20 04:25 Creatinine 0.85 mg/dL (0.55-1.3) 02/04/20 04:25 Glucose 133 mg/dL (74-106) H 02/04/20 04:25 Magnesium 1.8 mg/dL (1.8-2.4) 02/04/20 04:25 Total Bilirubin 0.3 mg/dL (0.2-1.0) 02/04/20 04:25 AST 72 U/L (15-37) H 02/04/20 04:25 ALT 102 U/L (12-78) H 02/04/20 04:25 Alkaline Phosphatase 67 U/L (45-117) 02/04/20 04:25 Home Medications: Ascorbic Acid [Vitamin C*] 500 mg PO BID #60 tablet 02/04/20 Aspirin [Aspirin EC 81 MG] 81 mg PO DAILY #30 tablet. 02/04/20 Gabapentin 600 mg PO QID 02/04/20 Lisinopril/Hydrochlorothiazide [Lisinopril-Hctz 20-12.5 mg Tab] 1 each PO DAILY 02/04/20 Melatonin [Melatonin*] 3 mg PO BEDTIME #30 tablet 02/04/20 Thiamine HCl [Vitamin B-1*] 100 mg PO DAILY #30 tablet 02/04/20 predniSONE [Prednisone*] 20 mg PO SEECOM #15 tab 02/04/20 traMADol HCL [Ultram] 50 mg PO TID PRN 02/04/20 New Medications: Aspirin [Aspirin EC 81 MG] 81 mg PO DAILY #30 tablet. Melatonin [Melatonin*] 3 mg PO BEDTIME #30 tablet predniSONE [Prednisone*] 20 mg PO SEECOM #15 tab Thiamine HCl [Vitamin B-1*] 100 mg PO DAILY #30 tablet Ascorbic Acid [Vitamin C*] 500 mg PO BID #60 tablet Patient Discharge Instructions: 1. Follow up with PCP in one week. 2. Patient with COVID pneumonia. Hypoxia noted. He was seen by Pulmonary. Patient received IV steroids and oxygen. He has done well with treatment. Patient will continue with Prednisone 20 mg one pill twice daily for 5 days then one pill every day for 5 days. Home oxygen will be arranged to maintain oxygen sats above 90%. Patient may need to limit activities for at least 1-2 weeks. Patient will also continue with Melatonin 3 mg every bedtime, Vitamin C 500 mg one pill twice daily, Thiamine 100 mg one pill daily. Recommend follow up with Pulmonary in one week to follow up this hospitalization. He will further adjust his medication and oxygen. 3. Patient with HTN. At discharge, he will continue with his medication-LisinoprilHCTZ daily. Recommend to maintain BP less than 150/80. Further adjustment can be done by PCP. 4. Patient with chronic pain. He may continue with his medication-Tramadol and Neurontin. Further adjustment in medication can be done by PCP. Diet: AHA Activity: Ad akosua Time spent managing pt's care (in minutes): 55
[2020-02-04 17:49] VITALS: O2SAT 90
[2020-02-04] MEDS ORDERED: MELATONIN 3 MG TABLET PO SCH (21:00)
== END 2020-02-04 18:38 | disposition home or self-care (01) ==
LOC: ER 03:59 → ERHOLD 06:01 → 3RD-ICU 06:38
PROVIDERS: ADMIT Family Medicine; ATTEND Family Medicine
DX: U07.1 COVID-19 (principal); J12.89 Other viral pneumonia; R09.02 Hypoxemia; I10 Essential (primary) hypertension; G89.29 Other chronic pain; M54.9 Dorsalgia, unspecified; E66.9 Obesity, unspecified; Z68.42 Body mass index [BMI] 45.0-49.9, adult; E11.9 Type 2 diabetes mellitus without complications; Z79.899 Other long term (current) drug therapy
CPT/HCPCS: 96365; 93005; 87040 ×2; 85025; 80048; 36415; 83735; 82565; 80076; 83605; 84484; 84145; 83880; 86140; 71275; 71045; 96375; 96372; 99285; Q9967; J0456; J1100; J1650; J0696; J7050; J2930; G0378 ×2

== ENCOUNTER → 2023-07-09 | Emergency (ER) | payer SELFPAY ==
[~2023-07-09] MED LIST: HYDROCODONE/APAP 10/325 TAB ONE; KETOROLAC 30 MG/ML INJ ONE
--- OUTSIDE RECORDS SUMMARY | 2023-07-09 16:31 | XMS REPORT | Continuity of Care Document ---
Author Name Unknown Address [address] [place] [address] [facility] Address [address] [place] [address] Care Team Providers Care Hand Tool Lapper Name Role Phone Nam PENA, Sabino Primary Care Physician [phone] LUDA RODRIGUEZ Attending Clinician UnavailURIEL Nicholson Attending Clinician Unavailable URIEL ALVARADO Attending Clinician Unavailable Uriel Alvarado DO Attending Clinician Payers Payer Name Policy Type Policy Number Effective Date Expirati on Date Source [facility] [id number] 2019 00:00:00 [facility] [id number] 2019 00:00:00 MEDICAID [place] PENDING PENDING 2020 00:00:00 Problems Condition Name Condition Details Condition Category Status Onset Date Resolution Date Last Treatment Date Treating Clinician Comments Source Neurologic disorder Neurologic disorder Disease Active 12-05 00:00: 00 Last Assessmen t & Plan: Formattin g of this note might be different from the original. He has another appt set up with troy whyte. [facility] Left hip pain Left hip pain Disease Active 12-05 00:00: 00 [facility] Greater trochanter ic bursitis of left hip Greater trochanter ic bursitis of left hip Disease Active 12-05 00:00: 00 Last Assessmen t & Plan: Formattin g of this note might be different from the original. Mr. Mcdonough presents today for an acute increase in pain that is affecting daily activitie s. After reevaluat ion determine the source of the pain in discussio n, a cortisone injection was done. [facility] Allergies, Adverse Reactions, Alerts Allergy Name Allergy Type Status Severity Reaction(s) Onset Date Inactive Date Treating Clinician Comments Source NO KNOWN ALLERGIE S Drug Class Active [facility] Social History Social Habit Start Date Stop Date Quantity Comments Source Alcohol intake 2022-04-09 00:00:00 2022-04-09 00:00:00 Ex-drinker (finding) [facility] Exposure to SARS-CoV-2 (event) 2022-03-25 00:00:00 2022-04-04 08:49:00 Not sure [facility] Tobacco use and exposure 2021-11-30 00:00:00 2021-11-30 00:00:00 Smokeless tobacco non-user [facility] Sex Assigned At 1960 00:00:00 1960 00:00:00 [facility] Smoking Status Start Date Stop Date Source Never smoked tobacco [facility] Medications Ordered Medication Name Filled Medication Name Start Date Stop Date Current Medication? Ordering Clinician Indication Dosage Frequency Signature (SIG) Comments Components Source bupivacaine (Marcaine) 0.5 % injection 1 mL 2021-06 14:15: 00 04-04 14:15 :00 No [id number] 1mL [facility] triamcinolo ne acetonide (Kenalog-40 ) injection 80 mg 2021-06 14:15: 00 04-04 14:15 :00 No [id number] 80mg [facility] triamcinolo ne acetonide (Kenalog-40 ) injection 80 mg 2021-06 14:15: 00 04-04 14:15 :00 No [id number] 80mg 80 mg, Intra-levi cular, Once PRN Procedure, Starting on Sun04/04/22 at 0915, For 1 dose [facility] bupivacaine (Marcaine) 0.5 % injection 1 mL 2021-06 14:15: 00 04-04 14:15 :00 No [id number] 1mL 1 mL, Injection, Once PRN Procedure, Starting on Sun04/04/22 at 0915, For 1 dose [facility] bupivacaine (Marcaine) 0.5 % injection 1 mL 12-28 20:20: 05 12-28 20:20 :00 No [id number] 1mL [facility] triamcinolo ne acetonide (Kenalog-40 ) injection 80 mg 12-28 20:20: 05 12-28 20:20 :00 No [id number] 80mg [facility] triamcinolo ne acetonide (Kenalog-40 ) injection 80 mg 12-28 20:20: 05 12-28 20:20 :00 No [id number] 80mg 80 mg, Intra-levi cular, Once PRN Procedure, Starting on Sun12/28/21 at 1520, For 1 dose [facility] bupivacaine (Marcaine) 0.5 % injection 1 mL 12-28 20:20: 05 12-28 20:20 :00 No [id number] 1mL 1 mL, Injection, Once PRN Procedure, Starting on Sun12/28/21 at 1520, For 1 dose [facility] lisinopril 20 MG tablet 11-19 00:00: 00 Yes 20mg Q.5D Take 20 mg by mouth in the morning and 20 mg in the evening. [facility] lisinopril 20 MG tablet 11-19 00:00: 00 Yes 20mg Q.5D Take 20 mg by mouth in the morning and 20 mg in the evening. [facility] lisinopril 20 MG tablet 11-19 00:00: 00 Yes 20mg Q.5D Take 20 mg by mouth in the morning and 20 mg in the evening. [facility] hydroCHLORO thiazide (HYDRODiuri l) 12.5 MG tablet 11-16 00:00: 00 Yes TAKE 1 TABLET BY MOUTH EVERY DAY IN THE MORNING FOR 90 DAYS [facility] metoprolol succinate XL (Toprol-XL) 100 MG 24 hr tablet 11-16 00:00: 00 Yes 100mg QD Take 100 mg by mouth 1 (one) time each day. [facility] hydroCHLORO thiazide (HYDRODiuri l) 12.5 MG tablet 11-16 00:00: 00 Yes TAKE 1 TABLET BY MOUTH EVERY DAY IN THE MORNING FOR 90 DAYS [facility] metoprolol succinate XL (Toprol-XL) 100 MG 24 hr tablet 11-16 00:00: 00 Yes 100mg QD Take 100 mg by mouth 1 (one) time each day. [facility] hydroCHLORO thiazide (HYDRODiuri l) 12.5 MG tablet 11-16 00:00: 00 Yes TAKE 1 TABLET BY MOUTH EVERY DAY IN THE MORNING FOR 90 DAYS [facility] metoprolol succinate XL (Toprol-XL) 100 MG 24 hr tablet 11-16 00:00: 00 Yes 100mg QD Take 100 mg by mouth 1 (one) time each day. [facility] lisinopril- hydroCHLORO thiazide 20-12.5 MG tablet 11-04 00:00: 00 Yes 1{tbl} Q.5D Take 1 tablet by mouth in the morning and 1 tablet before bedtime. [facility] lisinopril- hydroCHLORO thiazide 20-12.5 MG tablet 11-04 00:00: 00 Yes 1{tbl} Q.5D Take 1 tablet by mouth in the morning and 1 tablet before bedtime. [facility] lisinopril- hydroCHLORO thiazide 20-12.5 MG tablet 11-04 00:00: 00 Yes 1{tbl} Q.5D Take 1 tablet by mouth in the morning and 1 tablet before bedtime. [facility] Vital Signs Vital Name Observation Time Observation Value Comments S ource Body height 2021-11-30 19:11:00 172.7 cm [facility] Body weight 2021-11-30 19:11:00 137.893 kg [facility] BMI 2021-11-30 19:11:00 46.22 kg/m2 [facility] Procedures Procedure Date / Time Performed Performing Clinicia n Source [facility] ARTHROCENTESIS ASP/INJ MA CARMINA JOINT/BURSA W/OUT 2022-04-04 14:15:00 DannieLuda Miller [facility] NH ARTHROCENTESIS ASP/INJ MA CARMINA JOINT/BURSA W/OUT 2021-12-28 20:20:05 Luda Rodriguez [facility] Encounters Start Date/Time End Date/Time Encounter Type Admission Type Attending Clinicians Care Facility Care Department Encounter ID Source 2022-04-03 12:38:13 Outpatient [facility] [id number] [facility] 2021-08-08 16:26:38 Outpatient LUDA VALLE [facility] [id number] [facility] 2021-04-01 16:10:08 Emergency [facility] [id number] [facility] 2022-04-04 09:15:00 2022-04-04 10:03:17 Office Visit Luda Valle [facility] 1 [id number] [facility] 2021-12-28 15:00:00 2021-12-28 15:55:53 Office Visit Luda Valle [facility] 1 [id number] [facility] 2021-11-30 14:30:00 2021-11-30 15:52:44 Office Visit Luda Valle [facility] 1 [id number] [facility] 2020-12-30 15:00:00 2020-12-30 15:00:00 Outpatient R URIEL ALVARADO [facility] [id number] [facility] 2020-09-30 14:00:00 2020-09-30 14:00:00 Outpatient R URIEL ALVARADO [facility] [id number] [facility] 2020-09-23 14:20:00 2020-09-23 14:20:00 Outpatient R URIEL ALVARADO [facility] [id number] [facility] 2020-06-10 09:38:17 2020-06-10 09:58:17 Office Visit Uriel Alvarado [facility] [id number] 2020-06-10 09:40:00 2020-06-10 09:40:00 Outpatient URIEL JOSHUA [facility] [id number] [facility] 2020-03-05 09:20:00 2020-03-05 09:20:00 Outpatient URIEL JOSHUA [facility] [id number] [facility]
--- NOTE | 2023-07-09 17:45 | RAD REPORT ---
EXAM DESCRIPTION: RAD - Pelvis - 07/09/2023 5:06 pm CLINICAL HISTORY: fall COMPARISON: No comparisons TECHNIQUE: Single AP view of the pelvis. FINDINGS: The visualized pelvic ring is intact. No suspicious osseous lesions. No significant degene rative changes or erosions of the hip joints. Other pelvic joints are unremarkable. Visualized aspect s of the abdomen and soft tissues are unremarkable. IMPRESSION: No acute osseous abnormality of the bony pelvis.
--- NOTE | 2023-07-09 17:46 | RAD REPORT ---
EXAM DESCRIPTION: RAD - Hip Left 2 View - 07/09/2023 5:06 pm CLINICAL HISTORY: fall;Pain COMPARISON: No comparisons TECHNIQUE: Left hip, AP and frogleg views of the left hip. FINDINGS: There is no fracture or dislocation. No acute or destructive bony process seen. IMPRESSION: No acute findings of the left hip.
--- NOTE | 2023-07-09 17:48 | RAD REPORT ---
EXAM DESCRIPTION: RAD - Forearm Left - 07/09/2023 5:06 pm CLINICAL HISTORY: fall;Pain COMPARISON: No comparisons TECHNIQUE: Left forearm, 2 views. FINDINGS: No fracture is identified. There is no dislocation or periosteal reaction noted. Negative ulnar variance incidentally noted. Ossified density partially overlapping the medial epicondyle, nons pecific, but may relate to sequelae of prior trauma or common flexor tendon sprain. No foreign body or other soft tissue abnormality. IMPRESSION: No acute osseus abnormality. Ossified density partially overlapping the medial epicondyle, nonspecific, but may relate to sequelae of prior trauma or common flexor tendon sprain.
--- NOTE | 2023-07-09 18:29 | RAD REPORT ---
EXAM DESCRIPTION: CT - Abdomen Pelvis Wo Contrast - 07/09/2023 5:58 pm CLINICAL HISTORY: fall, left hip pain COMPARISON: No comparisons TECHNIQUE: Thin cut axial CT imaging of the abdomen and pelvis was performed without IV contrast. Mu ltiplanar reformats were generated and reviewed. All CT scans are performed using dose optimization technique as appropriate and may include automated exposure control or mA/KV adjustment according to patient size. FINDINGS: Breathing motion artifact somewhat limits evaluation particularly in the upper abdomen. No suspicious findings in the lung bases. The liver, spleen, adrenal glands, and pancreas show no suspicious findings. Gallbladder was surgical ly removed. Symmetric renal contour, without suspicious parenchymal findings within limits of noncontrast techniq ue. No evidence of radiopaque calculi or hydroureteronephrosis. No dilated bowel loops or bowel wall thickening. No free air, free fluid or inflammatory stranding. N o hernia, mass or bulky lymphadenopathy. The urinary bladder is without significant finding. No suspicious bony findings. IMPRESSION: No acute intra-abdominal process. Motion artifact particularly at the upper abdomen some what limits evaluation.
--- NOTE | 2023-07-09 19:50 | EDPHYS ---
Physician Documentation [facility] Name: Rubén Kelly Age: 62 yrs Sex: Male : 1960 Arrival Date: 07/09/2023 Time: 16:25 Bed DX3 Private MD: ED Physician Eliezer Tillman HPI: 07/09 16:50 This 62 yrs old Male presents to ER via Wheelchair with complaints of Fall cp Injury. 16:50 Details of fall: The patient fell from seated position, scooter. Onset: The cp symptoms/episode began/occurred yesterday. Associated injuries: The patient sustained left forearm, painful injury, left pelvis and left hip, painful injury. Severity of symptoms: in the emergency department the symptoms are unchanged, despite home interventions. Historical: - Allergies: 16:37 No Known Allergies; ko1 - PMHx: 16:37 chronic back pain; Hypertension; ko1 - Immunization history:: Adult Immunizations up to date. - Social history:: Smoking status: Patient denies any tobacco usage or history of. ROS: 16:55 MS/extremity: Positive for pain, tenderness, of the left forearm and left pelvis and cp left hip, Negative for decreased range of motion, deformity, 16:55 Abdomen/GI: Negative for abdominal pain, nausea, vomiting, and diarrhea, cp 16:55 Eyes: Negative for injury, pain, redness, and discharge, cp 16:55 Constitutional: Negative for body aches, chills, fever, poor PO intake, 16:55 Neck: Negative for pain with movement, pain at rest, stiffness, bony tenderness, 16:55 Cardiovascular: Negative for chest pain, palpitations, 16:55 Respiratory: Negative for cough, shortness of breath, wheezing, 16:55 Back: Negative for worsening back pain from fall, 16:55 Neuro: Negative for altered mental status, dizziness, headache, loss of consciousness, syncope, weakness, 16:55 All other systems are negative, Exam: 17:05 Constitutional: The patient appears in no acute distress, alert, awake, cp non-diaphoretic, non-toxic, well developed, well nourished, obese, 17:05 Head/Face: Normocephalic, atraumatic. cp 17:05 Eyes: Periorbital structures: appear normal, Conjunctiva: normal, no exudate, no injection, Sclera: no appreciated abnormality, Lids and lashes: appear normal, bilaterally, 17:05 ENT: External ear(s): are unremarkable, Nose: is normal, Mouth: Lips: moist, Oral mucosa: pink and intact, moist, Posterior pharynx: Airway: no evidence of obstruction, patent, 17:05 Neck: C-spine: vertebral tenderness, is not appreciated, crepitus, is not appreciated, ROM/movement: is normal, is supple, without pain, no range of motions limitations, 17:05 Chest/axilla: Inspection: normal, Palpation: is normal, no crepitus, no tenderness, 17:05 Cardiovascular: Rate: normal, 17:05 Respiratory: the patient does not display signs of respiratory distress, Respirations: normal, no use of accessory muscles, no retractions, labored breathing, is not present, Breath sounds: are clear throughout, no decreased breath sounds, no stridor, no wheezing, 17:05 Abdomen/GI: Inspection: obese Palpation: abdomen is soft and non-tender, in all quadrants, 17:05 Back: pain, no complaints, ROM is normal, vertebral tenderness, is not appreciated, 17:05 Musculoskeletal/extremity: Extremities: noted in the left posterior pelvis and buttock: pain, tenderness, noted in the left hip: mild pain with ROM, lateral tenderness to palpation, noted in the left forearm: pain and mild tenderness to palpation noted mid left forearm, no restriction and/or pain with AROM left elbow and left wrist, ROM: limited passive range of motion due to pain, in the left hip, 17:05 Neuro: Orientation: to person, place \T\ time. Mentation: is normal, Motor: moves all fours, strength is normal, Sensation: is normal, Gait: not tested. Vital Signs: 16:35 BP 126 / 94; Pulse 79; Resp 19; Temp 98.8; Pulse Ox 97% ; ko1 19:55 BP 124 / 87; Pulse 84; Resp 18 S; Pulse Ox 97% on R/A; as6 MDM: 16:40 Patient medically screened. cp 19:50 Data reviewed: vital signs, nurses notes, radiologic studies, CT scan, plain films. cp 19:50 Differential diagnosis: contusion, fracture, multiple trauma. I considered the cp following discharge prescriptions or medication management in the emergency department Medications were administered in the Emergency Department. See MAR. Independent interpretation of the following test(s) in the Emergency Department X-Ray: My interpretation is images of pelvis and left hip negative for fracture. Care significantly affected by the following chronic conditions: Hypertension, Obesity, back pain. Counseling: I had a detailed discussion with the patient and/or guardian regarding the historical points, exam findings, and any diagnostic results supporting the discharge/admit diagnosis, radiology results, the need for outpatient follow up, a family practitioner, to return to the emergency department if symptoms worsen or persist or if there are any questions or concerns that arise at home. 07/09 16:39 Order name: XRAY Pelvis; Complete Time: 19:39 cp 07/09 19:40 Interpretation: Report reviewed. cp 07/09 16:39 Order name: XRAY Hip LEFT 2 view; Complete Time: 19:39 cp 07/09 19:40 Interpretation: Report reviewed. cp 07/09 16:39 Order name: XRAY Forearm LEFT; Complete Time: 19:39 cp 07/09 19:40 Interpretation: Report reviewed. cp 07/09 17:44 Order name: CT Abd/Pelvis - Without Contrast; Complete Time: 19:39 cp 07/09 19:42 Order name: Crutches; Complete Time: 19:51 cp Administered Medications: 18:15 Drug: Ketorolac IM 30 mg IM once Route: IM; Site: left deltoid; ko1 19:51 Follow up: Response: No adverse reaction as6 19:51 Drug: HYDROcodone-acetaminophen PO 10 mg-325 mg 1 tabs PO once Route: PO; as6 19:51 Follow up: Response: No adverse reaction as6 Disposition Summary: 07/09/23 19:50 Discharge Ordered Notes: Location: Home cp Problem: new cp Symptoms: have improved cp Condition: Stable cp Diagnosis - Fall from motorized mobility scooter, initial encounter cp - Pain in left forearm cp - Pain in left hip cp Followup: cp - With: Private Physician - When: 2 - 3 days - Reason: Recheck today's complaints Discharge Instructions: - Discharge Summary Sheet cp - Joint Pain cp - Contusion cp - Hip Pain cp Forms: - Medication Reconciliation Form cp - Thank You Letter cp - Antibiotic Education cp - Prescription Opioid Use cp - Patient Portal Instructions cp - Leadership Thank You Letter cp Prescriptions: - Cyclobenzaprine 10 mg Oral Tablet - take 1 tablet ORAL route every 8 hours As needed; 30 tablet; Refills: 0, cp Product Selection Permitted - Diclofenac Sodium 75 mg Oral Tablet Sustained Release - take 1 tablet ORAL route 2 times per day; 30 tablet; Refills: 0, Product cp Selection Permitted Signatures: Dispatcher [employer] EDMS Eliezer Herman PA PA cp Slawson, Ashby, RN RN as6 Sherita Michelle RN RN ko1 Corrections: (The following items were deleted from the chart) 07/10 16:49 07/09 17:05 Musculoskeletal/extremity: Extremities: noted in the left posterior pelvis cp and buttock: pain, tenderness, noted in the left hip: mild pain with ROM, lateral tenderness to palpation, ROM: limited passive range of motion due to pain, in the left hip, cp
--- NOTE | 2023-07-09 19:50 | ER ---
Nurse's Notes [facility] Name: Rubén Kelly Age: 62 yrs Sex: Male : 1960 Arrival Date: 07/09/2023 Time: 16:25 Bed DX3 Private MD: Diagnosis: Fall from motorized mobility scooter, initial encounter;Pain in left forearm;Pain in left hip Presentation: 07/09 16:35 Chief complaint: Patient states: [facility]1 and the seat was not secure so I fell onto the asphalt, today my left hip hurts. Coronavirus screen: At this time, the client does not indicate any symptoms associated with coronavirus-19. Ebola Screen: No symptoms or risks identified at this time. Initial Sepsis Screen: Does the patient meet any 2 criteria? No. Patient's initial sepsis screen is negative. Does the patient have a suspected source of infection? No. Patient's initial sepsis screen is negative. Risk Assessment: Do you want to hurt yourself or someone else? Patient reports no desire to harm self or others. Onset of symptoms was July 08, 2023. 16:35 Method Of Arrival: Wheelchair ko1 16:35 Acuity: ELBA 3 ko1 Triage Assessment: 16:37 General: Appears in no apparent distress. Behavior is calm, cooperative, appropriate ko1 for age. Pain: Complains of pain in left gluteus linda. Historical: - Allergies: 16:37 No Known Allergies; ko1 - PMHx: 16:37 chronic back pain; Hypertension; ko1 - Immunization history:: Adult Immunizations up to date. - Social history:: Smoking status: Patient denies any tobacco usage or history of. Screenin:19 [facility] ED Fall Risk Assessment (Adult) History of falling in the last 3 months, ko1 including since admission Yes- single mechanical fall (1 pt) Confusion or Disorientation No (0 pts) Intoxicated or Sedated No (0 pts) Impaired Gait No (0 pts) Mobility Assist Device Used No (0 pt) Altered Elimination No (0 pt) Score/Fall Risk Level 0 - 2 = Low Risk Oriented to surroundings, Maintained a safe environment, Educated pt \T\ family on fall prevention, incl call for assistance when getting out of bed, Assessed \T\ reinforced patient's understanding of fall precautions, Hourly rounding (assess needs \T\ fall precautionary measures) done. Abuse screen: Denies threats or abuse. Denies injuries from another. Nutritional screening: No deficits noted. Tuberculosis screening: No symptoms or risk factors identified. Assessment: 18:19 General: Appears in no apparent distress. Behavior is calm, cooperative, appropriate ko1 for age. Pain: Complains of pain in buttocks and left gluteus linda. Vital Signs: 16:35 BP 126 / 94; Pulse 79; Resp 19; Temp 98.8; Pulse Ox 97% ; ko1 19:55 BP 124 / 87; Pulse 84; Resp 18 S; Pulse Ox 97% on R/A; as6 ED Course: 16:27 Patient arrived in ED. rg4 16:32 Eliezer Herman PA is PHCP. cp 16:32 Eliezer Tillman MD is Attending Physician. cp 16:37 Triage completed. ko1 16:37 Arm band placed on right wrist. Patient placed in an exam room, on a stretcher, on ko1 pulse oximetry, Patient notified of wait time. 17:08 XRAY Pelvis In Process Unspecified. EDMS 17:08 XRAY Hip LEFT 2 view In Process Unspecified. EDMS 17:08 XRAY Forearm LEFT In Process Unspecified. EDMS 18:00 CT Abd/Pelvis - Without Contrast In Process Unspecified. EDMS 18:18 Sherita Michelle, RN is Primary Nurse. ko1 18:19 Patient has correct armband on for positive identification. ko1 18:19 No provider procedures requiring assistance completed. Patient did not have IV access ko1 during this emergency room visit. 19:56 Provided Education on: follow up, rx teaching. as6 Administered Medications: 18:15 Drug: Ketorolac IM 30 mg IM once Route: IM; Site: left deltoid; ko1 19:51 Follow up: Response: No adverse reaction as6 19:51 Drug: HYDROcodone-acetaminophen PO 10 mg-325 mg 1 tabs PO once Route: PO; as6 19:51 Follow up: Response: No adverse reaction as6 Medication: 18:19 VIS not applicable for this client. ko1 Outcome: 19:50 Discharge ordered by . cp 19:56 Discharged to home via wheelchair, with crutches, with significant other, as6 19:56 Condition: stable 19:56 Discharge instructions given to patient, Instructed on discharge instructions, follow up and referral plans. medication usage, Demonstrated understanding of instructions, follow-up care, medications, crutch walking, Prescriptions given X 2, 19:56 Patient left the ED. as6 Signatures: Dispatcher [employer] EDMS Eliezer Herman PA PA cp Garcia, Rubi rg4 Baldomero Bentley RN RN as6 Sherita Michelle RN RN ko1
[2023-07-10 12:41] VITALS: BP 124/87; TEMP 98.8; O2SAT 97
== END ==
LOC: ER 16:25
DX: M79.632 Pain in left forearm (principal); M25.552 Pain in left hip; W05.2XXA Fall from non-moving motorized mobility scooter, initial encounter
CPT/HCPCS: 72170; 74176